=== PATIENT | female | born 2000 | race Caucasian/White ===

== ENCOUNTER 2021-06-30 19:49 | Emergency (ER) | payer OTHER, BC, SELFPAY ==
[2021-06-30 19:50] VITALS: BP 139/86; PULSE 79; RESP 16; TEMP 36.2; O2SAT 97; BMI 35.7
[2021-06-30 19:51] VITALS: BP 139/86; PULSE 79; RESP 16; TEMP 36.2; O2SAT 97
--- NOTE | 2021-06-30 21:17 | CT_ITS ---
EXAM: CT ABDOMEN AND PELVIS WITHOUT INTRAVENOUS CONTRAST CLINICAL INDICATION: Pain TECHNIQUE: Helically acquired images were obtained of the abdomen and pelvis without intravenous contrast. CTDIvol = ( 22.09 ) mGy, DLP = ( 1219.75 ) mGycm This CT exam was performed using one or more of the following dose reduction techniques: automated exposure control, adjustment of the mA and/or kV according to patient size, and/or use of iterative reconstruction technique. This report was created using [employer] report generation technology. COMPARISON: None. FINDINGS: LOWER THORAX: Unremarkable. Lung bases are clear. No cardiomegaly. No significant pericardial effusion. ABDOMEN: LIVER: Unremarkable. Homogeneous. GALLBLADDER AND BILE DUCTS: Unremarkable. No calcified gallstones. No gallbladder distention or wall edema. No intra- or extrahepatic biliary ductal dilation. PANCREAS: Unremarkable. No focal cystic mass. SPLEEN: Unremarkable. Normal size without focal cystic or solid mass. ADRENALS: Unremarkable. No nodules. KIDNEYS AND URETERS: 4 mm calculus at left UVJ with mild upstream dilatation of the collecting system. Normal renal size and position. STOMACH AND BOWEL: Unremarkable. No stomach or bowel distention. No focal inflammatory change. PELVIS: APPENDIX: No evidence of acute appendicitis. BLADDER: Unremarkable. REPRODUCTIVE: Unremarkable as visualized. No mass. ABDOMEN and PELVIS: INTRAPERITONEAL SPACE: Unremarkable. No ascites or other fluid collection. No free air. BONES/JOINTS: Unremarkable. No suspicious lytic or blastic abnormality. SOFT TISSUES: Unremarkable. No discrete abdominal or pelvic wall hernia. VASCULATURE: Unremarkable. Abdominal aorta is non-dilated. LYMPH NODES: Unremarkable. No enlarged lymph nodes. CT/Abdomen/Pelvis without Cont IMPRESSION: 4 mm calculus at left UVJ with mild upstream dilatation of the collecting system. No other acute findings in the abdomen or pelvis. Electronically Signed: Javier Werner MD at 21:55 EDT ,
--- NOTE | 2021-06-30 21:18 | ED.VIS.GI ---
HPI HPI - GI History of Present Illness Chief Complaint: Flank Pain Detail of Chief Complaint: Atraumatic left flank pain Informant: patient Abdominal Pain/Flank Pain Onset: Today and Hours Context: Gradual Onset Timing: Continuous Quality: Aching Location: Left Flank Current Severity: Mild Maximum Severity: Moderate Worsened by: Nothing Relieved by: Nothing Nausea/Vomiting/Emesis GI Symptom: Positive for Nausea and Vomiting Onset: Today Severity: Mild Diarrhea/Melena/Hematochezia GI Symptom: Negative for Diarrhea, Melena and Hematochezia Associated Symptoms Associated Symptoms: Negative for Dysuria, Frequency, Hematuria and Urgency Narrative Narrative: 20-year-old female who [place] who history of anxiety and depression. States she has left flank pain today. Associated nausea vomiting x1 while here in the waiting room. She denies any trauma. No prior history. No history of kidney stones. She is adopted she does not know her family history. She denies any dysuria. She denies any hematuria. She denies any fever. She has had some mild chills. Prior similar symptoms: No Recent Illness/Hospitalization: No PFSH PFSH Medical History Anxiety Asthma Depression Home Medications cephalexin 500 mg PO Q6 7 Days #28 cap 06/30/21 [Rx Last Taken Unknown] hydrocodone-acetaminophen 1 tab PO Q4H PRN 3 Days #10 tab 06/30/21 [Rx Last Taken Unknown] Allergy/AdvReac Type Severity Reaction Status Date / Time No Known Allergies Allergy Unverified 03/03/17 13:55 Family History Grandmother Diabetes Father No problems noted. Social History Smoking Status: Current every day smoker tobacco type: cigarettes alcohol intake: never substance use type: does not use caffeine: Yes what type of physical activity do you participate in: none seatbelt use: always do you feel safe at home: Yes additional social history: [employer] [facility] [employer] [facility] ROS ROS ED ROS Narrative Left flank pain. Chills. Review of Systems ROS Unobtainable: Denies due to encephalopathy Constitutional Constitutional ED: Reports chills; Denies fever(s) or subjective ENT ENT ED: Denies ear pain Cardiovascular Cardiovascular: Denies chest pain Respiratory/Chest Respiratory/Chest: Denies dyspnea Gastrointestinal Gastrointestinal: Reports abdominal pain, nausea and vomiting; Denies diarrhea Genitourinary Genitourinary ED: Denies dysuria or hematuria Musculoskeletal Musculoskeletal: Reports back pain; Denies arthralgias, myalgias or neck pain Integumentary Denies rash Neurologic Neurologic: Denies headache(s) Psychiatric Psychiatric: Denies depression Endocrine Endocrinology: Denies polyuria Hematologic/Lymphatic Hematologic/Lymphatic: Denies easy bruising Allergic/Immunologic Allergic/Immunologic ED: Denies urticaria EXAM Physical Exam Narrative Exam Narrative: 18-year-old female no acute distress. Vital signs stable afebrile. Step mom present in room. 8 EENT exam unremarkable. Moist extremities. Multiple piercings. Lungs clear to auscultation. Heart regular rhythm no murmur. Abdomen soft nontender. Back no reproducible tenderness. She complains of left flank pain but is not reproducible. Moves all 4 extremities. Neurovascular intact. Neurologically she is awake and alert. No focal motor deficits. Const Vital Signs: 06/30/21 19:50 06/30/21 19:51 06/30/21 20:53 Temperature 97.2 F L 97.2 F L Temperature Source Temporal Temporal Pulse Rate 79 79 Respiratory Rate 16 16 Respiratory Effort Normal Non-Labored Respiratory Pattern Normal Blood Pressure 139/86 H 139/86 H Blood Pressure Mean 103 103 Pulse Ox 97 97 Oxygen Delivery Method Room Air Room Air Positive well nourished, well developed and obese; Negative for cachectic, contractures or unkempt General Appearance ED: well developed and NAD; Negative for unkempt, cachectic, contractures or pallor Nutritional Appearance: obese; Negative for cachectic HEENT Reports moist mucous membranes normocephalic and atraumatic; Negative for trauma or tenderness Eyes PERRL and EOMs intact bilaterally General Eye ED: Negative for pale conjunctiva or scleral icterus Neck no lymphadenopathy, supple and no JVD General: Negative for tenderness Resp normal respiratory effort and clear to auscultation bilaterally Auscultation: Negative for rales, rhonchi or wheezes Cardio regular rate, regular rhythm, S1 normal heart sound, S2 normal heart sound and no murmurs GI non-tender, non-distended and no masses Auscultation: normoactive bowel sounds Palpation: soft; Negative for tender, guarding or rigid Back/Spine no CVA tenderness General Back: Negative for CVA tenderness Cervical Spine: Negative for cervical spine tenderness Thoracic Spine / Upper Back: Negative for thoracic spinal tenderness Extremity full ROM General Extremety ED: Negative for edema or tenderness General Extremity: Negative for edema Neuro moves all extremities Sensorium / Orientation: alert, oriented to person, oriented to place and oriented to time; Negative for orientation impaired, confused, lethargic or stuporous Psych mental status grossly normal and thought process normal Appearance: Negative for unkempt Attitude: No agitated Mood & Affect: Negative for depressed or tearful Skin no wounds General Skin Exam: Negative for jaundice or pallor Lesions: no lesions Rashes: no rashes MDM MDM MDM Narrative Medical decision making narrative: 20-year-old female left flank pain. Kidney stone versus UTI versus other. No history of trauma. No reproducible pain. CAT scan labs pending. She did not anything currently for pain or nausea. Patient doing well on repeat exam at 10:25 PM. She does not need anything for pain or nausea currently. She will be written for [place] for home for pain. Tylenol and Motrin also. Placed on Keflex for a week due to the possibility this being a urinary tract infection. Follow-up with her doctor return if worse. Lab Data Attestation: I reviewed the patient's lab results. Lab results narrative: CBC shows a white count of 15.5. H&H of 15.9 and 46. Platelets 306. Electrolytes potassium 5.2. Gap of 4 normal BUN and creatinine of 10 and 1. Glucose 115. UA shows occult blood 25-50 red cells ,10-25 white cells 2+ bacteria this will be treated as an infection. A culture will be sent. She will be started on Keflex.. CAT scan shows a left UVJ stone of 4 mm as read by the radiologist and reviewed by me. With hydro ureter. Labs: Laboratory Results - last 24 hr 06/30/21 06/30/21 06/30/21 21:25 21:25 21:40 WBC 15.5 H RBC 5.05 Hgb 15.9 H Hct 46.5 MCV 92.1 MCH 31.5 MCHC 34.2 RDW Std Deviation 40.2 RDW Coeff of Apolinar 11.9 Plt Count 306 MPV 10.2 Immature Gran % (Auto) 0.500 Neut % (Auto) 84.7 H Lymph % (Auto) 9.4 L [place] % (Auto) 4.7 Eos % (Auto) 0.4 Baso % (Auto) 0.3 Absolute Neuts (auto) 13.2 H Absolute Lymphs (auto) 1.46 Nucleated RBC % 0 Sodium 137 Potassium 5.2 H Chloride 105 Carbon Dioxide 28.0 Anion Gap 4 L BUN 10 Creatinine 1.05 H Estim Creat Clear Calc 84.78 Est GFR (MDRD) Af Amer 84 Est GFR (MDRD) Non-Af 69 BUN/Creatinine Ratio 9.5 L Glucose 115 H Calcium 9.4 Urine Color Yellow Urine Clarity Sl. Cloudy Urine pH 6.0 Ur Specific [place] 1.020 Urine Protein 30 H Urine Glucose (UA) Normal Urine Ketones Negative Urine Occult Blood 250 H Urine Nitrite Negative Urine Bilirubin Negative Urine Urobilinogen Normal Ur Leukocyte Esterase 500 H Urine RBC 25-50 SEEN Urine WBC 10-25 SEEN Ur Squamous Epith Cells 0-5 SEEN Urine Bacteria 2+ Urine Mucus 1+ Radiography Diagnostic Testing: Clinical Impression(s) from Imaging Studies Abdomen/Pelvis CT 06/30/21 21:17 IMPRESSION: 4 mm calculus at left UVJ with mild upstream dilatation of the collecting system. No other acute findings in the abdomen or pelvis. Electronically Signed: Javier Werner MD at 21:55 EDT , Discharge Plan Triage Chief Complaint: Flank Pain ED Provider: Mauricio Gomez Dx/Rx/DC Orders Clinical Impression: Acute left flank pain, Kidney stone on left side, UTI (urinary tract infection) Instructions: ED CYSTITIS Female Adult, ED Kidney Stone w/ Colic Prescriptions: New hydrocodone-acetaminophen 5-325 mg tablet 1 tab PO Q4H PRN (Reason: pain) 3 Days Qty: 10 RF: 0 cephalexin 500 mg capsule 500 mg PO Q6 7 Days Qty: 28 RF: 0 Primary Care Provider: Care Physician,No Primary Referrals: René Carmen MD [STAFF PHYSICIAN] - 3-5 Days if not improving Care Physician,No Primary [Primary Care Provider] - Activity Restrictions/Additional Instructions: Plenty of fluids and rest. Should pass the stone in the next 1 to 2 days. Its only 4 mm. Return if severe intractable pain or intractable nausea or vomiting or fever. You should pass the stone without any problems. Motrin for pain along with the pain medication [place]. [place] is a narcotic pain medication. Do not drink or drive while taking it. Make sure to drink plenty of fluids and prevent constipation and eating plenty of fiber. Your urine had white cells and bacteria so we will treat you also for a possible urinary tract infection. Keflex as antibiotic 1 pill 4 times a day for 1 week. Appears to be a urine culture was also sent. Disposition Disposition: Home, Self Care
[2021-06-30 21:31] LABS: Absolute Lymphocyte Count 1.46 X10^3/uL (0.83-4.51); Absolute Neutrophil Count 13.2 X10^3/uL (2.0-7.7); Basophil# 0.05 X10^3/uL; Basophil% 0.3 % (0-1); Eosinophil# 0.06 X10^3/uL; Eosinophils% 0.4 % (0-5); Hematocrit 46.5 % (37-47); Hemoglobin 15.9 g/dL (12.0-15.0); Lymphocyte # 1.46 X10^3/ul (0.83-4.51); Lymphocyte % 9.4 % (19-41); Mean Corp Hgb Conc 34.2 g/dL (32-36); Mean Corpuscular Hgb 31.5 pg (27.0-32.0); Mean Corpuscular Volume 92.1 fL (81-99); Mean Platelet Vol. 10.2 fl (6.2-12.0); Monocyte# 0.73 X10^3/uL; Monocyte% 4.7 % (0-10); NRBC Flagged by Analyzer 0 % (0-5); Neutrophil # 13.15 X10^3/uL (2.7-7.7); Neutrophil % 84.7 % (47-70); Platelet Count 306 K/mm3 (150-450); RBC Distribution Width CV 11.9 % (11.6-14.6); RBC Distribution Width SD 40.2 fl (35.1-43.9); Red Blood Count 5.05 M/mm3 (4.2-5.4); White Blood Count 15.5 K/mm3 (4.4-11.0)
[2021-06-30 21:49] LABS: Anion Gap 4 (5-15); BUN 10 mg/dL (7-18); BUN/Creat Ratio 9.5 RATIO (10-20); Calcium,Total 9.4 mg/dL (8.5-10.1); Chloride 105 mmol/L (98-107); Creatinine, Serum 1.05 mg/dL (0.55-1.02); EST Glomerular Filtration Rate 69 mL/min (>60); Est Glom Filt Rate - Afr Amer 84 mL/min (>60); Estimated Creatinine Clearance 84.78 ml/min; Glucose 115 mg/dL (74-106); Potassium 5.2 mmol/L (3.5-5.1); Sodium Level 137 mmol/L (136-145)
[2021-06-30 22:15] LABS: Color, Urine Yellow (Yellow); Glucose, Dipstick Normal (Normal); Ketone-Dipstick Negative (Negative); Leukocyte Esterase-Dipstick 500 /ul (Negative); Nitrite-Dipstick Negative (Negative); Occult Blood-Urine 250 /ul (Negative); Protein-Dipstick 30 mg/dl (Negative); Urine Bilirubin Dipstick Negative (Negative); Urine Clarity Sl. Cloudy (Clear); Urine Urobilinogen Normal (Normal)
[2021-06-30 22:27] LABS: White Blood Cells 10-25 SEEN /hpf (0-5)
[2021-06-30 22:28] LABS: Bacteria 2+ /hpf (None Seen); Mucous, Urine 1+ /hpf (<or=2+); Red Blood Cells-Urine 25-50 SEEN /hpf (0-5); Squamous Epithelial Cells - UA 0-5 SEEN /hpf (5-10)
[2021-06-30 22:39] LABS: Pregnancy, Serum, hCG Quali. NEGATIVE Negative (0-9 Nonpreg)
[2021-06-30] MEDS: Cephalexin 250 MG Capsule 500 MG PO (22:49)
[2021-06-30 22:50] LABS: Internal QC Validated? YES +Cl - CLEAR BKGD
[2021-06-30 22:51] VITALS: BP 135/63; PULSE 68
== END 2021-06-30 23:11 | disposition home or self-care (01) ==
PROVIDERS: Emergency Provider Emergency Medicine; Visit Provider Emergency Medicine
DX: N39.0 Urinary tract infection, site not specified (principal); N20.2 Calculus of kidney with calculus of ureter; R68.83 Chills (without fever); F41.9 Anxiety disorder, unspecified; R11.2 Nausea with vomiting, unspecified; R19.7 Diarrhea, unspecified; F32.A Depression, unspecified; J45.909 Unspecified asthma, uncomplicated; F17.210 Nicotine dependence, cigarettes, uncomplicated
CPT/HCPCS: 74176; 80048; 81001; 84703; 85025; 87086; 87088; 99284; A4216